=== PATIENT | female | born 1995 | race African-American/Black ===

== ENCOUNTER 2020-09-22 18:45 | Emergency (ER) | payer MEDICAID ==
[~2020-09-22] VITALS: Ht 157.5 cm; Wt 91.0 kg
[2020-09-22] MEDS ORDERED: KETOROLAC 30MG/ML VIAL IM ONE (19:45)
[2020-09-22 20:18] VITALS: BP 119/74
== END 2020-09-22 20:19 | disposition home or self-care (01) ==
LOC: ER 18:45
DX: J02.0 Streptococcal pharyngitis (principal); I49.9 Cardiac arrhythmia, unspecified; Z88.0 Allergy status to penicillin; Z91.018 Allergy to other foods; Z98.890 Other specified postprocedural states
CPT/HCPCS: 87430; 93005; 96372; 99284; J1885

== ENCOUNTER 2023-10-06 11:21 | Emergency (ER) | payer MEDICAID ==
[~2023-10-06] VITALS: Ht 157.5 cm; Wt 117.9 kg
[2023-10-06 11:52] VITALS: BP 144/79; PULSE 84; RESP 16; TEMP 98.2; O2SAT 100
[2023-10-06 12:48] LABS: BASOPHILS % 0.4 % (0.0-2.0); EOSINOPHILS % 0.4 % (0.0-5.0); HEMATOCRIT. 44.8 % (36.0-48.0); HEMOGLOBIN. 14.6 g/dL (12.0-16.0); LYMPHOCYTES % 21.1 % (20.0-50.0); MEAN CORPUSCULAR HEMOGLOBIN 29.8 pg (28.0-32.0); MEAN CORPUSCULAR HGB CONC 32.6 g/dL (31.0-37.0); MEAN CORPUSCULAR VOLUME 91.5 fL (81.0-99.0); MEAN PLATELET VOLUME 9.3 fl (7.4-10.4); MONOCYTES % 6.4 % (2.0-8.0); NEUTROPHILS % 71.7 % (40.0-76.0); PLATELET 350 x1000/uL (130-400); RED CELL DISTRIBUTION WIDTH 14.8 % (11.6-14.6); WHITE BLOOD COUNT 10.7 x1000/uL (4.5-11.0)
[2023-10-06 13:00] LABS: CHLORIDE 109 mEq/L (98-107); INDEX HEMOLYSI 1 (1-3); INDEX ICTERIC 1 (1-4); INDEX LIPEMIC 1 (1-3); POTASSIUM 3.7 mEq/L (3.5-5.1); SODIUM 137 mEq/L (136-145)
[2023-10-06 13:18] LABS: ALANINE AMINOTRANSFERASE 17 IU/L (13-61); ALBUMIN 3.5 g/dL (3.4-5.0); ASPARTATE AMINOTRANSFERASE 15 IU/L (15-37); B-HCG QUANTITATIVE 278 mIU/mL (<3); BILIRUBIN TOTAL 0.4 mg/dL (0.1-1.0); CARBON DIOXIDE 26 mEq/L (21-32); CREATININE 0.9 mg/dL (0.6-1.3); GLUCOSE 93 mg/dL (70-105); PROTEIN TOTAL 8.4 g/dL (6.0-8.3); UREA NITROGEN BLOOD 12 mg/dL (7-21)
[2023-10-06 14:10] LABS: CLARITY URINE CLOUDY (CLEAR); COLOR URINE YELLOW (YELLOW); GLUCOSE URINE NEGATIVE (NEGATIVE); KETONES URINE NEGATIVE (NEGATIVE); LEUKOCYTE ESTERASE URINE NEGATIVE (NEGATIVE); NITRITE URINE NEGATIVE (NEGATIVE); OCCULT BLOOD URINE 3+ (NEGATIVE); PROTEIN URINE NEGATIVE (NEGATIVE); SPECIFIC GRAVITY URINE 1.016 (1.005-1.030); UROBILINOGEN URINE 0.2 E.U./dL (0.2-1.0)
[2023-10-06 14:16] LABS: BACTERIA URINE NONE SEEN; RBC URINE TNTC /hpf (0-2); YEAST URINE NONE SEEN
[2023-10-06 18:10] LABS: SQUAMOUS EPITHELIAL CELL URINE 1+ /lpf (RARE/1+)
== END 2023-10-06 14:29 | disposition home or self-care (01) ==
LOC: ER 11:21
DX: O46.91 Antepartum hemorrhage, unspecified, first trimester (principal); Z3A.01 Less than 8 weeks gestation of pregnancy
CPT/HCPCS: 36415; 76801; 80053; 81003; 81025; 84702; 85025; 86850; 86900; 99284